=== PATIENT | male | born 1990 | race Two or more races ===

== ENCOUNTER 2016-09-23 15:28 | Emergency (ER) | payer SELFPAY ==
--- NOTE | 2016-09-23 15:43 | Emergency Department Record ---
History of Present Illness - General Chief Complaint: Dizziness Stated Complaint: DIZZY/VOMITING Time Seen by Provider: 09/23/16 15:43 Source: Patient Mode of Arrival: Ambulatory Limitations: No limitations - History of Present Illness Initial Comments: The patient has had a 2-3 day hx of gradual onset of dizziness. He describes it as feeling like he is spinning when he moves his head. He also has mild nausea and vomiting at times. The patient denies any trauma, injury, BRISCOE, neck pain or fever. He does state he has been having problems with congestion for a few weeks and has been having trouble with his R ear. He has had problems with his R ear in the past with a perforation and it has been draining at times. There is no reported ST, cough, or trouble breathing. MD Complaint: Dizziness Onset/Timin -: Days(s) Timing: Gradual onset Description: Lightheadedness, Nausea, Off-balance History of Same: No History of Trauma: No Severity: Moderate Improves With: Nothing Worsens With: Movement, Position Associated Symptoms: Other - Roc Coma Scale Eye Response: (4) Open spontaneously Motor Response: (6) Obeys commands Verbal Response: (5) Oriented Roc Total: 15 - Related Data Previous Rx's Medication Instructions Recorded Ciprofloxacin HCl/Dexameth 4 drop AFFEAR BID #1 ml 09/23/16 [Ciprodex OTIC Suspension] Meclizine HCl [Antivert] 25 mg PO Q8H #20 tablet 09/23/16 Allergies Allergy/AdvReac Type Severity Reaction Status Date / Time aspirin AdvReac upset Verified 09/23/16 15:36 stomach Travel Screening - Travel/Exposure Within Last 30 Days Have you traveled within the last 30 days?: No Review of Systems Constitutional: Denies: Chills, Fever Eyes: Denies: Eye discharge ENT: Denies: Congestion Respiratory: Denies: Cough, Dyspnea Past Medical History - SOCIAL HISTORY Smoking Status: Current every day smoker Alcohol Use: None Drug Use: None - RESPIRATORY Hx Respiratory Disorders: No - CARDIOVASCULAR Hx Cardio Disorders: No - NEURO Hx Neuro Disorders: No - GI Hx GI Disorders: No - Hx Genitourinary Disorders: No - ENDOCRINE Hx Endocrine Disorders: No - MUSCULOSKELETAL Hx Musculoskeletal Disorders: No - PSYCH Hx Psych Problems: No - HEMATOLOGY/ONCOLOGY Hx Hematology/Oncology Disorders: No Family Medical History Any Significant Family History?: No Physical Exam - General General Appearance: Alert, Oriented x3, Cooperative, No acute distress - Head Head exam: Atraumatic, Normocephalic, Normal inspection - Eye Eye exam: Normal appearance, PERRL, EOMI, Nystagmus (mild to the L.) - ENT ENT exam: negative: Normal exam, TM's normal bilaterally (The L TM is normal. The R TM has very distorted anatomy and probably a perforation present.) Throat exam: Normal inspection. negative: Tonsillar erythema, Tonsillar exudate - Neck Neck exam: Normal inspection, Full ROM. negative: Tenderness - Respiratory Respiratory exam: Normal lung sounds bilaterally. negative: Respiratory distress - Cardiovascular Cardiovascular Exam: Regular rate, Normal rhythm, Normal heart sounds - Extremities Extremities exam: Normal inspection, Full ROM, Normal capillary refill. negative: Tenderness - Neurological Neurological exam: Alert, Normal gait, Oriented X3, Other (Neg Drift or Rhomberg.). negative: Abnormal gait, Altered, Motor sensory deficit - Psychiatric Psychiatric exam: negative: Anxious - Skin Skin exam: negative: Rash Course Vital Signs 09/23/16 15:31 Temperature 98.4 F Pulse Rate 88 Respiratory 20 Rate Blood Pressure 137/88 Pulse Ox 97 - Reevaluation(s) Reevaluation #1: The patient is feeling a lot better and the dizziness has resolved. He denies any BRISCOE, neck pain, nausea or blurred vision. I did discuss the plan and the need for ENT F/U. 09/23/16 17:00 Medical Decision Making - Lab Data Result diagrams: 09/23/16 16:10 09/23/16 16:10 Disposition Disposition: Discharge Clinical Impression: Vertigo Disposition: Home, Self-Care Condition: (1) Good Instructions: Dizziness (ED) Additional Instructions: Please take the Antivert for nausea and dizziness and use the Abx ear drops as directed. Please see an ENT specialist next week for further evaluation of the R ear. Prescriptions: Ciprofloxacin HCl/Dexameth [Ciprodex OTIC Suspension] 4 drop AFFEAR BID #1 ml Meclizine HCl [Antivert] 25 mg PO Q8H #20 tablet Forms: Patient Portal Access Time of Disposition: 17:05
[2016-09-23] MEDS ORDERED: ONDANSETRON HCL IV 4 MG/2 ML VIAL IV ONE (15:48)
[2016-09-23] MEDS ORDERED: 0.9 % SODIUM CHLORIDE 1,000 ML BAG IV ONE (15:48)
[2016-09-23] MEDS ORDERED: MECLIZINE 25 MG TABLET PO ONE (15:49)
[2016-09-23 16:17] LABS: HEMATOCRIT 51.4 % (42.0-52.0); HEMOGLOBIN 16.9 gm/dl (14.0-18.0); MEAN CELL VOLUME 88.3 fl (81-97); MEAN CORPUSCULAR HGB CONC 32.9 g/dl (32-36); MEAN PLATELET VOLUME 12.2 fl (7.4-10.4); PLATELET COUNT 251 K/uL (130-400); RED BLOOD COUNT 5.82 M/uL (4.40-5.70); RED CELL DISTRIBUTION WIDTH 13.6 % (11.5-14.5); WHITE BLOOD COUNT W/O DIFF 9.5 K/uL (4.2-12.2)
[2016-09-23 16:31] LABS: ALBUMIN 4.8 gm/dL (3.5-5.0); ALKALINE PHOSPHATASE 80 U/L (38-126); ALT/SGPT 29 U/L (21-72); ANION GAP 10.1 (7-16); AST/SGOT 20 U/L (17-59); BILIRUBIN,TOTAL 0.49 mg/dL (0.2-1.3); BLOOD UREA NITROGEN 8 mg/dL (9-20); CARBON DIOXIDE 27.9 mmol/L (22-30); EST GLOMERULAR FILTRATION RATE > 60 ml/min; GLUCOSE,RANDOM 95 mg/dL (70-110); TOTAL PROTEIN 8.2 gm/dL (6.3-8.2)
== END 2016-09-23 17:34 | disposition home or self-care (01) ==
LOC: ER 15:28
DX: R42 Dizziness and giddiness (principal); R11.2 Nausea with vomiting, unspecified
CPT/HCPCS: 99284 ×2; 96374; 96361; 85025; 80076; 80048; J2405; J7030

== ENCOUNTER 2017-01-24 20:10 | Emergency (ER) | payer SELFPAY ==
[2017-01-24] MEDS ORDERED: IPRATROPIUM/ALBUTEROL (0.5MG/3MG) NEB INH ONE (20:43)
--- NOTE | 2017-01-24 20:48 | Emergency Department Record ---
History of Present Illness - General Chief Complaint: Cough Stated Complaint: COUGH Time Seen by Provider: 01/24/17 20:43 Source: Patient Mode of Arrival: Ambulatory Limitations: No limitations - History of Present Illness Initial Comments: 26 yo male presents to ED with a CC of non-productive cough symptoms, hot/cold flashes, and sore throat symptoms. Patient reports that his symptoms began 2 weeks ago, was seen 6 days ago [facility] and started on Prednisone and Tessalon which have not helped sufficiently. Patient denies fevers/chills, and denies health problems at his baseline. MD Complaint: Cough Onset/Timin -: Week(s) Severity scale (1-10): 8 Consistency: Intermittent Improves With: Nothing Worsens With: Deep breaths Associated Symptoms: Sore throat Treatments Prior to Arrival: Other - Related Data Previous Rx's Medication Instructions Recorded Prednisone [Prednisone 20Mg] 20 mg PO TID #12 tab 01/24/17 Allergies Allergy/AdvReac Type Severity Reaction Status Date / Time aspirin AdvReac upset Verified 01/24/17 20:25 stomach Travel Screening - Travel/Exposure Within Last 30 Days Have you traveled within the last 30 days?: No - Travel Symptoms Symptom Screening: None Review of Systems Constitutional: Denies: Chills, Fever, Malaise, Night sweats Eyes: Denies: Eye discharge, Eye pain ENT: Reports: Congestion, Throat pain. Denies: Ear pain, Epistaxis Respiratory: Reports: Cough, Wheezes. Denies: Dyspnea Cardiovascular: Denies: Chest pain, Dyspnea on exertion Endocrine: Denies: Fatigue, Heat or cold intolerance Gastrointestinal: Denies: Abdominal pain, Nausea, Vomiting Genitourinary: Denies: Incontinence, Retention Musculoskeletal: Denies: Arthralgia, Back pain, Gout, Joint swelling Skin: Denies: Bruising, Change in color Neurological: Denies: Abnormal gait, Confusion, Headache, Seizure Psychiatric: Denies: Anxiety Hematological/Lymphatic: Denies: Anemia, Blood Clots Past Medical History - SOCIAL HISTORY Smoking Status: Current every day smoker - RESPIRATORY Hx Respiratory Disorders: Yes Hx Asthma: Yes Hx Bronchitis: Yes - CARDIOVASCULAR Hx Cardio Disorders: No - NEURO Hx Neuro Disorders: No - GI Hx GI Disorders: No - Hx Genitourinary Disorders: No - ENDOCRINE Hx Endocrine Disorders: No - MUSCULOSKELETAL Hx Musculoskeletal Disorders: No - PSYCH Hx Psych Problems: No - HEMATOLOGY/ONCOLOGY Hx Hematology/Oncology Disorders: No Family Medical History Any Significant Family History?: Yes Hx Cancer: Grandparents Hx Diabetes: Mother, Grandparents Physical Exam - General General Appearance: Alert, Oriented x3, Cooperative, Mild distress Limitations: No limitations - Head Head exam: Atraumatic, Normocephalic, Normal inspection Head exam detail: negative: Abrasion, Contusion, Reynoso's sign, General tenderness, Hematoma, Laceration - Eye Eye exam: Normal appearance. negative: Conjunctival injection, Periorbital swelling, Periorbital tenderness, Scleral icterus - ENT Ear exam: negative: Auricular hematoma, Auricular trauma Nasal Exam: negative: Active bleeding, Discharge, Dried blood, Foreign body Mouth exam: negative: Drooling, Laceration, Muffled voice, Tongue elevation - Neck Neck exam: Normal inspection. negative: Meningismus, Tenderness - Respiratory Respiratory exam: Wheezes (mild wheezes right). negative: Respiratory distress , Rhonchi, Stridor - Cardiovascular Cardiovascular Exam: Regular rate, Normal rhythm, Normal heart sounds - GI/Abdominal GI/Abdominal exam: Soft. negative: Rebound, Rigid, Tenderness - Rectal Rectal exam: Deferred - exam: Deferred - Extremities Extremities exam: Normal inspection. negative: Calf tenderness, Pedal edema, Tenderness - Back Back exam: Denies: CVA tenderness (R), CVA tenderness (L) - Neurological Neurological exam: Alert, Normal gait, Oriented X3 - Psychiatric Psychiatric exam: Normal affect, Normal mood - Skin Skin exam: Normal color. negative: Abrasion Type of lesion: negative: abrasion Course Vital Signs 01/24/17 20:26 Temperature 98.6 F Pulse Rate 107 H Respiratory 20 Rate Blood Pressure 129/67 Pulse Ox 95 - Reevaluation(s) Reevaluation #1: 01/24/17 22:03 CXR: No acute process Patient was updated on his CXR results, reports that his breathing and cough symptoms are improved following duoneb. Symptoms appear c/w bronchitis. Will prescribe Prednisone as the patient has albuterol at home for his symptoms to improve lung inflammation symptoms. Patient appears stable for discharge at this time. Disposition Disposition: Discharge Clinical Impression: Bronchitis Disposition: Home, Self-Care Condition: (2) Stable Instructions: Acute Bronchitis (ED) Additional Instructions: Return to ED if your symptoms worsen or if you have any concerns. Prednisone as directed. Follow-up with your family doctor in 3-5 days as directed. Prescriptions: Prednisone [Prednisone 20Mg] 20 mg PO TID #12 tab Forms: Patient Portal Access Time of Disposition: 22:05 Quality - Quality Measures Quality Measures: N/A - Blood Pressure Screening Does Patient Have Any of the Following: No Blood Pressure Classification: Pre-Hypertensive BP Reading Systolic Measurement: 129 Diastolic Measurement: 67 Screening for High Blood Pressure: < Pre-Hypertensive BP, F/U Documented > [ [id number]] Pre-Hypertensive Follow-up Interventions: Referral to alternative/primary care provider.
[2017-01-24] MEDS ORDERED: PREDNISONE 20 MG TAB PO ONE (22:04)
--- NOTE | 2017-01-25 14:08 | RADIOLOGY REPORT ---
EXAM: CHEST, TWO VIEWS HISTORY: COUGH. TECHNIQUE: PA and lateral upright views of the chest were obtained. Comparison: 02/20/16. FINDINGS: The heart, mediastinum, and pulmonary vasculature are normal. There are no acute infiltrates or effusions. There is no pneumothorax. The bones appear intact. IMPRESSION: NEGATIVE CHEST EXAMINATION. JOB NUMBER: [id number] MTDD
== END 2017-01-24 22:20 | disposition home or self-care (01) ==
LOC: ER 20:10
DX: J20.9 Acute bronchitis, unspecified (principal)
CPT/HCPCS: 99283 ×2; 71020; 94640; J7512